=== PATIENT | male | born 1970 | race Caucasian/White ===

== ENCOUNTER 2016-02-15 22:02 | Emergency (ER) | payer BC ==
[2016-02-15] MEDS ORDERED: Aspirin Low Dose CHEW TAB* 81 MG PO ONE (22:04)
[2016-02-15 22:25] LABS: Hematocrit 44 % (42-52); Hemoglobin 14.9 g/dl (14.0-18.0); Mean Corpuscular HGB Conc 34 g/dl (31-36); Mean Corpuscular Hemoglobin 30 pg (27-31); Mean Corpuscular Volume 89 fL (80-94); Mean Platelet Volume 7 um3 (7.4-10.4); Red Blood Count 4.99 10^6/ul (4.0-5.4); Red Cell Distribution Width 13 % (10.5-15); White Blood Count 8.9 10^3/ul (3.5-10.8)
[2016-02-15 22:49] LABS: ALT 93 U/L (7-52); Albumin 4.4 g/dL (3.2-5.2); Alcohol < 10 mg/dL (<10); Alkaline Phosphatase 107 U/L (34-104); BUN/Creatinine Ratio 16.5 (8-20); Blood Urea Nitrogen 16 mg/dL (6-24); CO2 Carbon Dioxide 26 mmol/L (22-32); Calcium 9.1 mg/dL (8.6-10.3); Chloride 101 mmol/L (101-111); EGFR African American 106.7 (>60); Globulin 3.1 g/dL (2-4); Glucose 111 mg/dL (70-100); Sodium 135 mmol/L (133-145); Total Protein 7.5 g/dL (6.4-8.9)
[2016-02-15] MEDS ORDERED: Iohexol 350* (CONTRAST) 500 ML MDV IV ONE (22:58)
--- NOTE | 2016-02-15 23:14 | RAD ---
INDICATION: Chest pain COMPARISON: None TECHNIQUE: PA and lateral views of the chest were obtained. FINDINGS: The heart and mediastinum are normal in size and contour. The lungs are grossly clear. There is no evidence of large pleural effusion. Visualized bones are normal for the patient's age. There is no radiographic evidence of free air beneath the diaphragm IMPRESSION: No radiographic evidence of acute cardiopulmonary disease.
--- NOTE | 2016-02-16 00:09 | ED ---
dave Frost Timothy, scribed for Vijay Fitzpatrick MD on 02/15/16 at 2215 . Syncope/Near Syncope - HPI Summary HPI Summary: Victor M Rosas is a 45 yo male presenting to [facility] with syncope, CP, and SOB at 2130 today. He states he was laughing very hard and wound up losing consciousness. He was unconscious for a few seconds, with no post-ictal period. He remembers regaining consciousness, but not the loss of consciousness itself. He does not see a doctor for his SOB, which started months ago, but has noticed it has been getting worse recently. He recently had a surgery performed by Dr. Greene. His MHx includes sleep apnea. - History Of Current Complaint Chief Complaint: EDSyncope Time Seen by Provider: 02/15/16 22:04 Hx Obtained From: Patient Onset/Duration: Sudden Onset, Lasting Minutes Timing: Intermittent Episode Lasting - seconds Context: Witnessed Activity At Onset: At Rest Associated Head Trauma: No Aggravating Factor(s): Position Change Alleviating Factor(s): Spontaneous Resolution Associated Signs And Symptoms: Chest Pain, Shortness Of Breath - Allergies/Home Medications Allergies/Adverse Reactions: Allergies Allergy/AdvReac Type Severity Reaction Status Date / Time No Known Allergies Allergy Verified 01/24/16 06:36 PMH/Surg Hx/FS Hx/Imm Hx Respiratory History: Reports: Hx Sleep Apnea - DOES NOT USE CPAP Sensory History: Comment Only: Hx Contacts or Glasses - CONTACTS, WILL WEAR GLASSES DAY OF SURGERY Opthamlomology History: Comment Only: Hx Contacts or Glasses - CONTACTS, WILL WEAR GLASSES DAY OF SURGERY - Surgical History Hx Anesthesia Reactions: No - Family History Known Family History: Positive: Hypertension Negative: Cardiac Disease, Diabetes - Social History Occupation: Employed Full-time Alcohol Use: Rare Alcohol Amount: MAYBE 1 DRINK/YR Substance Use Type: Reports: None Smoking Status (MU): Never Smoked Tobacco Have You Smoked in the Last Year: No Review of Systems Constitutional: Negative Eyes: Negative ENT: Negative Positive: Chest Pain Positive: Shortness Of Breath Gastrointestinal: Negative Genitourinary: Negative Musculoskeletal: Negative Skin: Negative Positive: Syncope Psychological: Normal All Other Systems Reviewed And Are Negative: Yes Physical Exam Triage Information Reviewed: Yes Vital Signs On Initial Exam: Initial Vitals Temp Pulse Resp BP Pulse Ox 100.1 F 94 19 138/77 93 02/15/16 22:07 02/15/16 22:07 02/15/16 22:07 02/15/16 22:07 02/15/16 22:07 Vital Signs Reviewed: Yes Appearance: Positive: Well-Appearing, No Pain Distress Skin: Positive: Warm Head/Face: Positive: Normal Head/Face Inspection Eyes: Positive: [place] ENT: Positive: Hearing grossly normal Neck: Positive: Supple Respiratory/Lung Sounds: Positive: Clear to Auscultation, Breath Sounds Present Cardiovascular: Positive: RRR. Negative: Murmur Abdomen Description: Positive: Nontender, Soft Bowel Sounds: Positive: Present Musculoskeletal: Positive: Strength/ROM Intact Neurological: Positive: Sensory/Motor Intact, Alert, Oriented to Person Place, Time Psychiatric: Positive: Normal Diagnostics - Vital Signs Vital Signs Temp Pulse Resp BP Pulse Ox 02/15/16 22:07 100.1 F 94 19 138/77 93 - Laboratory Lab Results: Lab Results 02/15/16 02/15/16 02/15/16 Range/Units 22:05 22:05 22:05 WBC 8.9 (3.5-10.8) 10^3/ul RBC 4.99 (4.0-5.4) 10^6/ul Hgb 14.9 (14.0-18.0) g/dl Hct 44 (42-52) % MCV 89 (80-94) fL MCH 30 (27-31) pg MCHC 34 (31-36) g/dl RDW 13 (10.5-15) % Plt Count 307 (150-450) 10^3/ul MPV 7 L (7.4-10.4) um3 Neut % (Auto) 55.2 (38-83) % Lymph % (Auto) 30.0 (25-47) % [place] % (Auto) 8.2 (1-9) % Eos % (Auto) 5.7 (0-6) % Baso % (Auto) 0.9 (0-2) % Absolute Neuts (auto) 4.9 (1.5-7.7) 10^3/ul Absolute Lymphs (auto) 2.7 (1.0-4.8) 10^3/ul Absolute Monos (auto) 0.7 (0-0.8) 10^3/ul Absolute Eos (auto) 0.5 (0-0.6) 10^3/ul Absolute Basos (auto) 0.1 (0-0.2) 10^3/ul Absolute Nucleated RBC 0.01 10^3/ul Nucleated RBC % 0.1 D-Dimer, Quantitative 240 H (Less Than 230) ng/mL Sodium 135 (133-145) mmol/L Potassium TNP Chloride 101 (101-111) mmol/L Carbon Dioxide 26 (22-32) mmol/L Anion Gap TNP BUN 16 (6-24) mg/dL Creatinine 0.97 (0.67-1.17) mg/dL Est GFR ( Amer) 106.7 (>60) Est GFR (Non-Af Amer) 83.0 (>60) BUN/Creatinine Ratio 16.5 (8-20) Glucose 111 H (70-100) mg/dL Lactic Acid (0.5-2.0) mmol/L Calcium 9.1 (8.6-10.3) mg/dL Total Bilirubin 0.50 (0.2-1.0) mg/dL AST TNP ALT 93 H (7-52) U/L Alkaline Phosphatase 107 H (34-104) U/L Troponin I 0.00 (<0.04) ng/mL Total Protein 7.5 (6.4-8.9) g/dL Albumin 4.4 (3.2-5.2) g/dL Globulin 3.1 (2-4) g/dL Albumin/Globulin Ratio 1.4 (1-3) Serum Alcohol < 10 (<10) mg/dL 02/15/16 Range/Units 22:05 WBC (3.5-10.8) 10^3/ul RBC (4.0-5.4) 10^6/ul Hgb (14.0-18.0) g/dl Hct (42-52) % MCV (80-94) fL MCH (27-31) pg MCHC (31-36) g/dl RDW (10.5-15) % Plt Count (150-450) 10^3/ul MPV (7.4-10.4) um3 Neut % (Auto) (38-83) % Lymph % (Auto) (25-47) % [place] % (Auto) (1-9) % Eos % (Auto) (0-6) % Baso % (Auto) (0-2) % Absolute Neuts (auto) (1.5-7.7) 10^3/ul Absolute Lymphs (auto) (1.0-4.8) 10^3/ul Absolute Monos (auto) (0-0.8) 10^3/ul Absolute Eos (auto) (0-0.6) 10^3/ul Absolute Basos (auto) (0-0.2) 10^3/ul Absolute Nucleated RBC 10^3/ul Nucleated RBC % D-Dimer, Quantitative (Less Than 230) ng/mL Sodium (133-145) mmol/L Potassium Chloride (101-111) mmol/L Carbon Dioxide (22-32) mmol/L Anion Gap BUN (6-24) mg/dL Creatinine (0.67-1.17) mg/dL Est GFR ( Amer) (>60) Est GFR (Non-Af Amer) (>60) BUN/Creatinine Ratio (8-20) Glucose (70-100) mg/dL Lactic Acid 1.6 (0.5-2.0) mmol/L Calcium (8.6-10.3) mg/dL Total Bilirubin (0.2-1.0) mg/dL AST ALT (7-52) U/L Alkaline Phosphatase (34-104) U/L Troponin I (<0.04) ng/mL Total Protein (6.4-8.9) g/dL Albumin (3.2-5.2) g/dL Globulin (2-4) g/dL Albumin/Globulin Ratio (1-3) Serum Alcohol (<10) mg/dL Result Diagrams: 02/15/16 22:05 02/16/16 00:50 Lab Statement: Any lab studies that have been ordered have been reviewed, and results considered in the medical decision making process. - Radiology CXR Xray Interpretation: No Acute Changes - IMPRESSION: No radiographic evidence of acute cardiopulmonary disease. Radiology Interpretation Completed By: Radiologist - CT Chest/Thorax CT Interpretation: No Acute Changes - No pulmonary embolism identified. No other acute abnormality sen in the chest or visualized upper abdomen. CT Interpretation Completed By: Radiologist - imaging certified lactation educator - EKG 2210 Cardiac Rate: NL - @ 86 BPM EKG Interpretation: NSR @ 86 BPM Re-Evaluation - Re-Evaluation First Eval Re-Evaluation Time: 02:46 Change: Improved Comment: Pt will be discharged, he is agreeable Course/Dx Assessment/Plan: Victor M Rosas is a 45 yo male presenting to [facility] S/P a witnessed syncopal episode at 2130 today lasting a few seconds, accompanied by CP and SOB. After review of his EKG, labs, and CXR, he will be discharged with syncope with instructions to follow up with his PCP. He is agreeable to this plan. - Diagnoses Provider Diagnoses: Syncope and collapse Discharge - Discharge Plan Condition: Stable Disposition: HOME Patient Education Materials: Syncope (ED) Referrals: Non Staff,Doctor [Primary Care Provider] - Additional Instructions: Follow up with your primary care physician regarding your visit to the emergency department. Return to the emergency department with any recurring or worsening symptoms. The documentation as recorded by the dave walker Timothy accurately reflects the service I personally performed and the decisions made by me, Vijay Fitzpatrick MD.
[2016-02-16 02:20] LABS: Benzodiazepine Urine Screen None Detected (None Detect)
[2016-02-16 02:42] VITALS: BP 117/77
--- NOTE | 2016-02-16 07:59 | RAD ---
HISTORY: Surgery, shortness of breath COMPARISONS: None TECHNIQUE: Multiple contiguous axial CT scans of the chest were obtained after the administration of nonionic intravenous contrast, timed to the pulmonary arterial phase of contrast enhancement.. Coronal and sagittal multiplanar reformations are also submitted for review. FINDINGS: NECK AND THYROID: The lower neck and thyroid are unremarkable. CHEST WALL: There is no lower cervical, axillary, or supraclavicular lymphadenopathy by size criteria. HEART AND PERICARDIUM: The heart is unremarkable. AORTA AND PULMONARY VASCULATURE: There is no pulmonary arterial filling defect to suggest pulmonary embolism. There is no linear filling defect within the aorta to suggest aortic dissection. MEDIASTINUM: There is no mediastinal lymphadenopathy by size criteria. NAHEED: There is a subcentimeter short axis right hilar lymph node. AIRWAY AND ESOPHAGUS: The airway is unremarkable, without endobronchial filling defect. The esophagus is grossly normal. LUNG PARENCHYMA: The lungs are clear. PLEURA: No pleural abnormalities are noted. UPPER ABDOMEN: The upper abdomen is unremarkable. BONES AND SOFT TISSUES: Degenerative changes are noted OTHER: None. IMPRESSION: NO PULMONARY ARTERIAL FILLING DEFECT TO SUGGEST PULMONARY EMBOLUS.
== END 2016-02-16 02:49 | disposition home or self-care (01) ==
LOC: ED 22:02
DX: R55 Syncope and collapse (principal); R07.9 Chest pain, unspecified; R06.02 Shortness of breath
CPT/HCPCS: 36415; 71020; 71275; 80053; 80307; 80320; 83605; 84484; 85025; 85379; 93005; 99283; G0480; Q9967

== ENCOUNTER 2017-03-18 21:01 | Emergency (ER) | payer BC, OTHER ==
[2017-03-18] MEDS ORDERED: Ketorolac INJ* 30 MG/ML 1 ML VIAL IV PUSH ONE (21:37)
[2017-03-18] MEDS ORDERED: Diazepam SYRINGE* 5 MG/ML 2 ML SYRINGE (10 MG total) IV ONE (21:38)
[2017-03-18] MEDS ORDERED: Diazepam INJ (NF) 5 MG/ML 10 ML VIAL (50 MG TOTAL) IV ONE (22:30)
--- NOTE | 2017-03-19 00:09 | ED ---
Nathan Frost Abhishek, scribed for Aleshia Tong MD on 03/18/17 at 2145 . Complex/Multi-Sys Presentation - HPI Summary HPI Summary: This patient is a 46 year old M presenting [place] [facility] accompanied by and male doughnut icer with a chief complaint of lower back pain s/p fall since earlier today. The pt Fell on ice and pt reports that his back hit the running board of the ambulance. Pt reports neck pain and right shoulder pain. Medications reviewed and none were reported. Pt denies head injury, tingling in the fingers , prior lower back hx and urinary problems. The pt currently has a C-collar applied. The patient rates the pain 6/10 in severity. Symptoms aggravated by nothing. Symptoms alleviated by nothing. Pt also has had no hx of focal neurological weakness. - History Of Current Complaint Chief Complaint: EDBackInjuryPain Time Seen by Provider: 03/18/17 21:21 Hx Obtained From: Patient Onset/Duration: Sudden Onset, Lasting Hours - at 1115 on 03/18/17 Severity Currently: Moderate Severity Initially: Moderate Aggravating Factor(s): nothing Alleviating Factor(s): nothing Associated Signs And Symptoms: Positive: Back Pain - Lower back pain, Other - neck pain and right shoulder pain. Negative LOC, head injury, tingling in the fingers and urinary problems. - Allergies/Home Medications Allergies/Adverse Reactions: Allergies Allergy/AdvReac Type Severity Reaction Status Date / Time No Known Allergies Allergy Verified 03/18/17 21:09 PMH/Surg Hx/FS Hx/Imm Hx Endocrine/Hematology History: Denies: Hx Diabetes Cardiovascular History: Reports: Hx Hypertension Respiratory History: Reports: Hx Sleep Apnea - DOES NOT USE CPAP History: Denies: Hx Renal Disease Sensory History: Comment Only: Hx Contacts or Glasses - CONTACTS, WILL WEAR GLASSES DAY OF SURGERY Opthamlomology History: Comment Only: Hx Contacts or Glasses - CONTACTS, WILL WEAR GLASSES DAY OF SURGERY - Surgical History Hx Anesthesia Reactions: No - Immunization History Date of Influenza Vaccine: 02/2017 Immunizations Up to Date: Yes Infectious Disease History: No Infectious Disease History: Denies: Traveled Outside the [place] in Last 30 Days - Family History Known Family History: Positive: Hypertension Negative: Cardiac Disease, Diabetes - Social History Lives: With Family Alcohol Use: Rare Alcohol Amount: MAYBE 1 DRINK/YR Substance Use Type: Reports: None Smoking Status (MU): Never Smoked Tobacco Have You Smoked in the Last Year: No Review of Systems Constitutional: Negative Eyes: Negative ENT: Negative Cardiovascular: Negative Respiratory: Negative Gastrointestinal: Negative Positive: no symptoms reported Musculoskeletal: Other - lower back pain, neck pain and right shoulder pain Skin: Negative Neurological: Other - Negative LOC Psychological: Normal All Other Systems Reviewed And Are Negative: Yes Physical Exam - Summary Physical Exam Summary: VITAL SIGNS: Reviewed. GENERAL: ~Patient is a well-developed and nourished (MALE) who is lying comfortable in the stretcher. Patient is not in any acute respiratory distress. HEAD AND FACE: No signs of trauma. No ecchymosis, hematomas or skull depressions. No sinus tenderness. EYES: PERRLA, EOMI x 2, No injected conjunctiva, no nystagmus. EARS: Hearing grossly intact. Ear canals and tympanic membranes are within normal limits. MOUTH: Oropharynx within normal limits. NECK: Supple, trachea is midline, no adenopathy, no JVD, no carotid bruit. C spine collar applied. CHEST: Symmetric, no tenderness at palpation LUNGS: Clear to auscultation bilaterally. No wheezing or crackles. CVS: Regular rate and rhythm, S1 and S2 present, no murmurs or gallops appreciated. ABDOMEN: Soft, non-tender. No signs of distention. No rebound no guarding, and no masses palpated. Bowel sounds are normal. EXTREMITIES: FROM in all major joints, no edema, no cyanosis or clubbing. NEURO: Alert and oriented x 3. No acute neurological deficits. Speech is normal and follows commands. Bilateral straight left test positive (Right le degrees and left le degrees) SKIN: Dry and warm Back: Tenderness of lumbar spine. Triage Information Reviewed: Yes Vital Signs On Initial Exam: Initial Vitals Temp Pulse Resp BP Pulse Ox 98.5 F 83 18 136/90 97 03/18/17 21:06 03/18/17 21:06 03/18/17 21:06 03/18/17 21:06 03/18/17 21:06 Vital Signs Reviewed: Yes Diagnostics - Vital Signs Vital Signs Temp Pulse Resp BP Pulse Ox 03/18/17 21:06 98.5 F 83 18 136/90 97 - Laboratory Lab Statement: Any lab studies that have been ordered have been reviewed, and results considered in the medical decision making process. - CT CT Lumbar Spine CT Interpretation Completed By: Radiologist - CT Lumbar Spine reveals negative for lumbar spinal fracture of malalignment ED physician has reviewed this radiology report and agrees. CT Thoracic spine CT Interpretation Completed By: Radiologist - CT Thoracic Spine reveals negative for thoracic spinal fracture por malalighment Mild degenerative changes. Incidental note is made of calcified coronary artery plaques. ED physician has reviewed this radiology report and agrees. CT Cervical Spine CT Interpretation Completed By: Radiologist - CT Cervical Spine reveals negative for fracture or malalignment Mild degenerative changes. ED physician has reviewed this radiology report and agrees. Complex Multi-Symp Course/Dx Course Of Treatment: the pt is a 46 M with a CC of lower back pain s/p fall. The mechanism of the fall was described as fall on ice in which the pt "hit the running board of the ambulance." Pt also reports the right shoulder pain and neck pain. The pt had the following imaging exams taken: CT Lumbar spine, CT Cervical spine and CT Thoracic spine. We discussed the cervical spine CT findings (Coronary artery plaques) and the pt denied chest pain and angine. We recommened to follow up with PCP within 2 to 3 days to discuss the CT findings. The dx will be contusion and the pt will be discharged to home. - Diagnoses Provider Diagnoses: Contusion Discharge - Discharge Plan Condition: Stable Disposition: HOME Patient Education Materials: Contusion in Adults (ED) Referrals: Willi Chi MD [Primary Care Provider] - (Follow up with PCP within 2 to [address] Cervical spine findings (Coronary Artery Plaques).) Additional Instructions: RETURN TO THE EMERGENCY DEPARTMENT FOR CHANGING OR WORSENING SYMPTOMS. The documentation as recorded by the Nathan walker Abhishek accurately reflects the service I personally performed and the decisions made by , Aleshia Tong MD.
[2017-03-19 00:25] VITALS: BP 120/82
--- NOTE | 2017-03-19 07:51 | RAD ---
HISTORY: Fall, back pain COMPARISONS: CT of the chest dated February 15, 2016 TECHNIQUE: Multiple contiguous axial CT scans were obtained of the thoracic spine without intravenous contrast, with coronal and sagittal multiplanar reformations. FINDINGS: SPINAL CANAL: Evaluation of the central canal is limited on CT technique; however, there is no obvious canalicular mass or epidural hemorrhage. ALIGNMENT: The alignment is normal. VERTEBRAL BODIES: There is mild anterior wedging of the midthoracic spine stable from February 25, 2016. There is no acute displaced fracture. JOINTS: There is mild osteoarthritis of the costovertebral articulations. MUSCULATURE: Normal INTERVERTEBRAL DISCS: There is diffuse loss of intervertebral disc height throughout the spine. AXIAL IMAGES: There is no osseous central canal stenosis or neuroforaminal narrowing. SOFT TISSUES: Coronary calcifications are noted. OTHER: None IMPRESSION: MILD DEGENERATIVE DISC DISEASE AND OSTEOARTHRITIS.
--- NOTE | 2017-03-19 07:53 | RAD ---
HISTORY: Fall, back pain COMPARISONS: None TECHNIQUE: Multiple contiguous axial CT scans were obtained of the lumbar spine without intravenous contrast, with coronal and sagittal multiplanar reformations. FINDINGS: SPINAL CANAL: Evaluation of the central canal is limited on CT technique; however, there is no obvious canalicular mass or epidural hemorrhage. ALIGNMENT: The alignment is normal. VERTEBRAL BODIES: The vertebral bodies are preserved in height. The bones are normal in attenuation. There is mild anterolateral marginal osteophyte formation. JOINTS: There is mild facet hypertrophic change. MUSCULATURE: Normal INTERVERTEBRAL DISCS: There is diffuse loss of intervertebral disc height throughout the spine. AXIAL IMAGES: T12-L1: There is no osseous neural foraminal narrowing or central canal stenosis. L1-L2: There is no osseous neural foraminal narrowing or central canal stenosis. L2-L3: There is no osseous neural foraminal narrowing or central canal stenosis. L3-L4: There is no osseous neural foraminal narrowing or central canal stenosis. L4-L5: There is a broad-based disc bulge. There is marginal osteophyte formation at the neuroforamina bilaterally. There is moderate bilateral neural foraminal narrowing. There is no osseous central canal stenosis. L5-S1: There is mild broad-based disc bulge. There is no osseous neural foraminal narrowing or central canal stenosis. SOFT TISSUES: The visualized soft tissues of the abdomen are unremarkable. OTHER: None IMPRESSION: MILD DEGENERATIVE DISC DISEASE AND OSTEOARTHRITIS. THERE IS NEURAL FORAMINAL NARROWING AT L4-L5. THERE IS NO OSSEOUS CENTRAL CANAL STENOSIS.
--- NOTE | 2017-03-19 07:56 | RAD ---
INDICATION: Trauma, neck pain. COMPARISON: There are no prior studies available for comparison. TECHNIQUE: Contiguous axial sections were obtained from the skull base through the T3 vertebra. Images were reconstructed in the sagittal and coronal planes. FINDINGS: There is straightening of the cervical spine with loss of the normal cervical lordosis. No prevertebral soft tissue swelling or fracture is seen. At the C3-C4 level there is posterior uncinate process spurring associated with a small to moderate size left posterior lateral disc protrusion. There is mild neural foraminal narrowing on the right side and moderate neural foraminal narrowing on the left side. At the C4-C5 level there is mild posterior uncinate process spurring which causes mild spinal canal narrowing. There is moderate bilateral neural foraminal narrowing. At the C5-C6 level there is mild posterior uncinate process spurring which causes mild spinal canal narrowing. There is mild to moderate bilateral neural foraminal narrowing. At C6-C7 level there is no evidence for spinal canal or neural foraminal narrowing. IMPRESSION: 1. STRAIGHTENING OF THE CERVICAL SPINE, NO EVIDENCE FOR FRACTURE OR SUBLUXATION. 2. MODERATE CERVICAL SPONDYLOSIS.
== END 2017-03-19 00:24 | disposition home or self-care (01) ==
LOC: ED 21:01
DX: S30.0XXA Contusion of lower back and pelvis, initial encounter (principal); W18.09XA Striking against other object with subsequent fall, initial encounter; Y93.89 Activity, other specified; Y92.9 Unspecified place or not applicable; M54.2 Cervicalgia; M25.511 Pain in right shoulder; M47.812 Spondylosis without myelopathy or radiculopathy, cervical region; M51.36 Other intervertebral disc degeneration, lumbar region; M47.816 Spondylosis without myelopathy or radiculopathy, lumbar region; M51.34 Other intervertebral disc degeneration, thoracic region; M47.814 Spondylosis without myelopathy or radiculopathy, thoracic region; I10 Essential (primary) hypertension; G47.30 Sleep apnea, unspecified
CPT/HCPCS: 72125; 72128; 72131; 96374; 96375; 99282; J1885; J3360

== ENCOUNTER 2017-04-26 12:46 | Observation (INO) | payer BC, OTHER ==
--- NOTE | 2017-04-26 14:28 | RAD ---
HISTORY: Chest pain COMPARISONS: February 15, 2016 VIEWS: 1: frontal portable view of the chest at 2:15 PM. The right costophrenic angle is partially cut off. FINDINGS: LINES AND TUBES: None. CARDIOMEDIASTINAL SILHOUETTE: The cardiomediastinal silhouette is normal for portable technique. PLEURA: The right costophrenic angle is partially cut off. The left costophrenic angle is sharp. LUNG PARENCHYMA: The lungs are clear. ABDOMEN: The upper abdomen is clear. There is no subphrenic gas. BONES AND SOFT TISSUES: No bone or soft tissue abnormalities are noted. IMPRESSION: LIMITED STUDY. NO ACTIVE CARDIOPULMONARY DISEASE.
[2017-04-26 14:44] LABS: ABS Basophils 0 10^3/ul (0-0.2); ABS Eosinophils 0.2 10^3/ul (0-0.6); ABS Lymphocytes 1.8 10^3/ul (1.0-4.8); ABS Monocytes 0.6 10^3/ul (0-0.8); ABS Neutrophils 4.9 10^3/ul (1.5-7.7); ABS Nucleated RBC 0 10^3/ul; Eosinophil % 2.5 % (0-6); Hematocrit 40 % (42-52); Hemoglobin 13.6 g/dl (14.0-18.0); Lymphocyte % 23.7 % (25-47); Mean Corpuscular HGB Conc 34 g/dl (31-36); Mean Corpuscular Hemoglobin 30 pg (27-31); Mean Corpuscular Volume 89 fL (80-94); Mean Platelet Volume 6.4 um3 (7.4-10.4); Nucleated Red Blood Cells % 0; Platelet Count 309 10^3/ul (150-450); Red Blood Count 4.54 10^6/ul (4.0-5.4); Red Cell Distribution Width 13 % (10.5-15); White Blood Count 7.5 10^3/ul (3.5-10.8)
[2017-04-26 14:52] LABS: INR 0.95 (0.77-1.02)
[2017-04-26 15:08] LABS: EGFR Non-African American 104.7 (>60)
[2017-04-26] MEDS ORDERED: Nitroglycerin TAB 0.4 MG* 0.4 MG TAB ONE (15:27)
[2017-04-26] MEDS ORDERED: Morphine INJ* 2 MG/ML 1 ML CARPUJECT IV PRN (16:28)
[2017-04-26] MEDS ORDERED: Acetaminophen TAB* 325 MG PO PRN (16:28)
[2017-04-26] MEDS ORDERED: Al Hydrox/Mg Hydrox/Simet LIQ* 30 ML UDC PO PRN (16:31)
--- NOTE | 2017-04-26 17:54 | ED ---
Ken Frost Thomas, scribed for Josiah Khalil MD on 04/26/17 at 1328 . HPI Chest Pain - HPI Summary HPI Summary: The patient is a 46 year old male complaining of chest pain in the center of his chest. The pain woke up at 05:00 and the chest pain began at 6:00, and it lasted for 30 minutes. The pain is described as dull and burning. 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 He was not exerting himself when the pain began. The pain began again at 10:30. He was given ASA 324 and NTG x2 en route to [facility]. He did have some palpitations before arrival to [facility]. He felt lightheaded when standing. Past medical history includes CAD. He is being seen by a maintenance custodian. - History of Current Complaint Chief Complaint: EDChestPainROMI Time Seen by Provider: 04/26/17 13:01 Hx Obtained From: Patient Onset/Duration: Still Present Time of Onset: 06:00 Timing: Intermittent, Lasting Minutes - 30 Current Severity: Moderate Pain Intensity: 3 Pain Scale Used: 0-10 Numeric Chest Pain Location: Discrete at: - center of chest Character: Burning, Dull/Aching Alleviating Factor(s): Nothing Associated Signs and Symptoms: Positive: Chest Pain, Other: - Lightheadedness, palpitations - Allergy/Home Medications Allergies/Adverse Reactions: Allergies Allergy/AdvReac Type Severity Reaction Status Date / Time No Known Allergies Allergy Verified 03/18/17 21:09 Home Medications: Home Medications Multivitamins/Minerals TAB* [Theragran/minerals TAB*] 1 tab PO DAILY 04/26/17 [ History Confirmed 04/26/17] PMH/Surg Hx/FS Hx/Imm Hx Endocrine/Hematology History: Denies: Hx Diabetes Cardiovascular History: Reports: Hx Coronary Artery Disease Denies: Hx Hypertension Respiratory History: Reports: Hx Sleep Apnea - DOES NOT USE CPAP History: Denies: Hx Renal Disease Sensory History: Comment Only: Hx Contacts or Glasses - CONTACTS, WILL WEAR GLASSES DAY OF SURGERY Opthamlomology History: Comment Only: Hx Contacts or Glasses - CONTACTS, WILL WEAR GLASSES DAY OF SURGERY - Surgical History Hx Anesthesia Reactions: No - Immunization History Date of Influenza Vaccine: 02/2017 Infectious Disease History: No Infectious Disease History: Denies: Traveled Outside the [place] in Last 30 Days - Family History Known Family History: Positive: Hypertension Negative: Cardiac Disease, Diabetes - Social History Alcohol Use: Rare Alcohol Amount: MAYBE 1 DRINK/YR Substance Use Type: Reports: None Smoking Status (MU): Never Smoked Tobacco Have You Smoked in the Last Year: No Review of Systems Positive: Other - Lightheaded when standing. Negative: Fever Positive: Palpitations, Chest Pain All Other Systems Reviewed And Are Negative: Yes Physical Exam - Summary Physical Exam Summary: Appearance: The patient is well-nourished in no acute distress and in no acute pain. Skin: The skin is warm and dry and skin color reflects adequate perfusion. HEENT: The head is normocephalic and atraumatic. The pupils are equal and reactive. The conjunctivae are clear and without drainage. Nares are patent and without drainage. Mouth reveals moist mucous membranes and the throat is without erythema and exudate. The external ears are intact. The ear canals are patent and without drainage. The tympanic membranes are intact. Neck: the neck is supple with full range of motion and non-tender. There are no carotid bruits. There is no neck vein distension. Respiratory: Chest is non-tender. Lungs are clear to auscultation and breath sounds are symmetrical and equal. Cardiovascular: Heart is regular rate and rhythm. There is no murmur or rub auscultated. There is no peripheral edema and pulses are symmetrical and equal. Abdomen: The abdomen is soft and non-tender. There are normal bowel sounds heard in all four quadrants and there is no organomegaly palpated. Musculoskeletal: There is no back tenderness noted. Extremities are non-tender with full range of motion. There is good capillary refill. There is no peripheral edema or calf tenderness elicited. Neurological: Patient is alert and oriented to person, place and time. The patient has symmetrical motor strength in all four extremities. Cranial nerves are grossly intact. Deep tendon reflexes are symmetrical and equal in all four extremities. Psychiatric: The patient has an appropriate affect and does not exhibit any anxiety or depression. Triage Information Reviewed: Yes Vital Signs On Initial Exam: Initial Vitals Temp Pulse Resp BP Pulse Ox 98.3 F 77 16 119/53 94 04/26/17 12:56 04/26/17 12:56 04/26/17 12:56 04/26/17 12:56 04/26/17 12:56 Vital Signs Reviewed: Yes Diagnostics - Vital Signs Vital Signs Temp Pulse Resp BP Pulse Ox 04/26/17 12:56 98.3 F 77 16 119/53 94 - Laboratory Lab Results: Lab Results 04/26/17 04/26/17 04/26/17 Range/Units 14:35 14:35 14:35 WBC 7.5 (3.5-10.8) 10^3/ul RBC 4.54 (4.0-5.4) 10^6/ul Hgb 13.6 L (14.0-18.0) g/dl Hct 40 L (42-52) % MCV 89 (80-94) fL MCH 30 (27-31) pg MCHC 34 (31-36) g/dl RDW 13 (10.5-15) % Plt Count 309 (150-450) 10^3/ul MPV 6.4 L (7.4-10.4) um3 Neut % (Auto) 65.6 (38-83) % Lymph % (Auto) 23.7 L (25-47) % [place] % (Auto) 7.6 H (0-7) % Eos % (Auto) 2.5 (0-6) % Baso % (Auto) 0.6 (0-2) % Absolute Neuts (auto) 4.9 (1.5-7.7) 10^3/ul Absolute Lymphs (auto) 1.8 (1.0-4.8) 10^3/ul Absolute Monos (auto) 0.6 (0-0.8) 10^3/ul Absolute Eos (auto) 0.2 (0-0.6) 10^3/ul Absolute Basos (auto) 0 (0-0.2) 10^3/ul Absolute Nucleated RBC 0 10^3/ul Nucleated RBC % 0 INR (Anticoag Therapy) (0.77-1.02) D-Dimer, Quantitative (Less Than 230) ng/mL Sodium 137 (133-145) mmol/L Potassium 3.6 (3.5-5.0) mmol/L Chloride 104 (101-111) mmol/L Carbon Dioxide 27 (22-32) mmol/L Anion Gap 6 (2-11) mmol/L BUN 19 (6-24) mg/dL Creatinine 0.79 (0.67-1.17) mg/dL Est GFR ( Amer) 134.6 (>60) Est GFR (Non-Af Amer) 104.7 (>60) BUN/Creatinine Ratio 24.1 H (8-20) Glucose 96 (70-100) mg/dL Lactic Acid (0.5-2.0) mmol/L Calcium 9.2 (8.6-10.3) mg/dL Total Bilirubin 0.40 (0.2-1.0) mg/dL AST 22 (13-39) U/L ALT 23 (7-52) U/L Alkaline Phosphatase 101 (34-104) U/L Troponin I 0.00 (<0.04) ng/mL B-Natriuretic Peptide 19 ( - 100) pg/mL Total Protein 7.1 (6.4-8.9) g/dL Albumin 4.1 (3.2-5.2) g/dL Globulin 3.0 (2-4) g/dL Albumin/Globulin Ratio 1.4 (1-3) TSH 0.81 (0.34-5.60) mcIU/mL 04/26/17 04/26/17 04/26/17 Range/Units 14:35 14:35 16:24 WBC (3.5-10.8) 10^3/ul RBC (4.0-5.4) 10^6/ul Hgb (14.0-18.0) g/dl Hct (42-52) % MCV (80-94) fL MCH (27-31) pg MCHC (31-36) g/dl RDW (10.5-15) % Plt Count (150-450) 10^3/ul MPV (7.4-10.4) um3 Neut % (Auto) (38-83) % Lymph % (Auto) (25-47) % [place] % (Auto) (0-7) % Eos % (Auto) (0-6) % Baso % (Auto) (0-2) % Absolute Neuts (auto) (1.5-7.7) 10^3/ul Absolute Lymphs (auto) (1.0-4.8) 10^3/ul Absolute Monos (auto) (0-0.8) 10^3/ul Absolute Eos (auto) (0-0.6) 10^3/ul Absolute Basos (auto) (0-0.2) 10^3/ul Absolute Nucleated RBC 10^3/ul Nucleated RBC % INR (Anticoag Therapy) 0.95 (0.77-1.02) D-Dimer, Quantitative < 200 (Less Than 230) ng/mL Sodium (133-145) mmol/L Potassium (3.5-5.0) mmol/L Chloride (101-111) mmol/L Carbon Dioxide (22-32) mmol/L Anion Gap (2-11) mmol/L BUN (6-24) mg/dL Creatinine (0.67-1.17) mg/dL Est GFR ( Amer) (>60) Est GFR (Non-Af Amer) (>60) BUN/Creatinine Ratio (8-20) Glucose (70-100) mg/dL Lactic Acid 0.6 (0.5-2.0) mmol/L Calcium (8.6-10.3) mg/dL Total Bilirubin (0.2-1.0) mg/dL AST (13-39) U/L ALT (7-52) U/L Alkaline Phosphatase (34-104) U/L Troponin I 0.00 (<0.04) ng/mL B-Natriuretic Peptide ( - 100) pg/mL Total Protein (6.4-8.9) g/dL Albumin (3.2-5.2) g/dL Globulin (2-4) g/dL Albumin/Globulin Ratio (1-3) TSH (0.34-5.60) mcIU/mL Result Diagrams: 04/26/17 14:35 04/26/17 14:35 Lab Statement: Any lab studies that have been ordered have been reviewed, and results considered in the medical decision making process. - Radiology CXR Xray Interpretation: No Acute Changes - LIMITED STUDY. NO ACTIVE CARDIOPULMONARY DISEASE. Dr. Khalil has reviewed this report. Radiology Interpretation Completed By: Radiologist - EKG 13:04 Cardiac Rate: NL EKG Rhythm: Sinus Rhythm - at 71 BPM EKG Interpretation: Nondiagnostic Q waves in inferior leads. 15:36 Cardiac Rate: NL EKG Rhythm: Sinus Rhythm - at 72 BPM EKG Interpretation: Nondiagnostic Q waves in inferior leads. Re-Evaluation - Re-Evaluation First Eval Re-Evaluation Time: 15:54 Comment: Patient will be admitted. Chest Pain Course/Dx - Course Course Of Treatment: Mr. Rosas presented pain-free but with a worrisome story for CP that resolved with NTG. His initial ECG and labs were WNL but he began to have a return of his CP therefore, the hospitalist service was contacted for admission. - Diagnoses Provider Diagnoses: Chest pain Discharge - Sign-Out/Discharge Documenting (check all that apply): Discharge - Discharge Plan Condition: Stable Disposition: ADMITTED TO [facility] - Billing Disposition and Condition Condition: STABLE Disposition: HOSP-[facility] The documentation as recorded by the Ken walker Thomas accurately reflects the service I personally performed and the decisions made by me, Josiah Khalil MD.
--- NOTE | 2017-04-26 21:35 | HP ---
CC: Dr. Garcia; Dr. Manley * HISTORY AND PHYSICAL: DATE OF ADMISSION: 04/26/17 PRIMARY CARE PROVIDER: Dr. Garcia. TUBER MACHINE OPERATOR: Dr. Manley. CHIEF COMPLAINT: Chest pain. HISTORY OF PRESENT ILLNESS: Victor M Rosas is a 46-year-old male with history of obstructive sleep apnea for which he uses CPAP occasionally for which he was evaluated by Dr. Manley on 04/09/17 for intermittent chest pains and coronary calcifications noted incidentally on a trauma CAT scan of the chest after the patient fell earlier this year. Dr. Manley recommended for the patient to have an event monitor and cardiac stress test. The cardiac stress test was scheduled on 05/07/17. The patient presents today complaining of chest pain. He stated that his chest pain is similar to what he had been happening for the past 6 months. It 4/10 in intensity, nonradiating, little bit worse when he takes a deep breath. The chest pain occurred not with exercise, but when he was sitting on a tractor. It lasted approximately half an hour, then it recurred and lasted another hour. He stated that usually his pains would not last that long. The usual duration of his chest pains are usually 15 minutes. Usually, they have been occurring with a frequency of approximately twice a week and had been ongoing for the past 6 months. The patient denies any problems with exercise tolerance and he does not remember chest pain that occurred with exercise. So far, his ER workup is unremarkable. He is going to be placed on observation with cardiac stress test planned in the morning. PAST MEDICAL HISTORY: Obstructive sleep apnea, on CPAP. Last time the patient used his CPAP was a week ago. MEDICATIONS: Multivitamin daily and CPAP nightly, but the patient had been noncompliant with that. ALLERGIES: No known drug allergies. FAMILY HISTORY: Positive for mother with hypertension, father healthy. SOCIAL HISTORY: The patient never . 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 He denies any tobacco, alcohol or drug use. His surrogate is his mother. REVIEW OF SYSTEMS: Please see history of present illness. All the remaining 12 systems were reviewed with the patient and they were otherwise negative. PHYSICAL EXAMINATION GENERAL: The patient is a pleasant 46-year-old male with a BMI of 29. The patient is in no acute distress. Alert, awake and oriented x3. VITAL SIGNS: Blood pressure of 102/74, heart rate 72 and regular, respiratory rate 18, oxygen saturation 100% on 2 L of oxygen nasal cannula, and temperature of 98.3 HEENT: Head: Atraumatic, normocephalic. Eyes: Pupils equal, round, and reactive to light and accommodation. Oropharynx clear. Mucosa moist. NECK: Supple. No JVD. No bruits bilaterally. RESPIRATORY: Clear to auscultation bilaterally. CARDIOVASCULAR: Regular rate and rhythm. No murmur. ABDOMEN: Soft, nontender. Bowel sounds are present in all 4 quadrants. EXTREMITIES: There is no edema, pulses are +2 bilaterally. No clubbing or cyanosis. NEUROLOGIC: Speech is clear. Cranial nerves II through XII grossly intact. Motor strength is 5/5 bilaterally. LABORATORY DATA AND STUDIES: White blood cell count of 7.5, hemoglobin of 13.6 , hematocrit of 40 and platelets of 309. D-dimer was below 200. Sodium of 137 , potassium 3.6, chloride 104, carbon dioxide 27, BUN 19, creatinine 0.79. Liver function test unremarkable. Troponin of 0. TSH of 0.81. The patient's EKG showed normal sinus rhythm with a heart rate of 72 beats per minute with slow inferior Q waves in leads II and III and aVF. No other abnormalities. Comparing with an EKG from February 2016, the EKG was grossly unchanged. Portable chest x-ray. Impression: "Limited study. No active cardiopulmonary disease." ASSESSMENT AND PLAN: 1. A 46-year-old male with no significant past medical history, but noted coronary calcification on CT of the chest within the past month who presents with chest pain for the past 6 months. His chest pain today were of longer duration than before. It does not appear that they are caused by exercise and there is some pleuritic component to it, but no other aggravating or alleviating factors. The patient is going to be placed on overnight observation , planned for a treadmill stress test in the morning. He is going to be placed on aspirin on a daily basis and fasting lipid profile is going to be obtained in the morning. 2. In regards to the patient's obstructive sleep apnea, CPAP is going to be provided at night. 3. For DVT prophylaxis, the patient is low risk and he is going to be encouraged with ambulation. 4. The patient's code status is full and his surrogate is his mother. TIME SPENT: Approximately 65 minutes were spent on admission of this patient, more than half that time was spent [id number] with the patient during the interview and physical exam. [id number]/[facility] #: [id number] NATHALIE
[2017-04-27] MEDS ORDERED: Aspirin TAB* 325 MG PO SCH (09:00)
[2017-04-27] MEDS ORDERED: Multivitamins/Minerals TAB PO SCH (09:00)
--- NOTE | 2017-04-27 15:08 | RAD ---
Edited for charges. INDICATION: Chest pain, shortness of breath. COMPARISON: No relevant prior exams available on the [facility] PACS for comparison. TECHNIQUE: 10.500 mCi of Tc-99m Myoview were administered IV. SPECT images of the heart were obtained. Later on the same day. Under the direction of Dr. Nobles, an exercise stress test was performed. The patient achieved a peak heart rate of 150 bpm, 87 % of the age- predicted maximum. Subsequently, the patient was given an IV injection of 26.130 mCi Tc- 99m Myoview. SPECT images of the heart were obtained and a gated wall motion study was performed. FINDINGS: Gated wall motion images were obtained at stress and demonstrate hypokinesia at the anterior aspect of the septum. The calculated left ventricular ejection fraction is 55 % at stress. Estimated LEFT ventricular end diastolic volume is 100 mL. TID 0.89. Mild fixed thinning of the cardiac apex noted of doubtful clinical significance. No stress-induced reversible perfusion defect to indicate ischemia. IMPRESSION: 1. No compelling evidence for stress induced myocardial ischemia or presence of an infarct. 2. Hypokinesia at the anterior aspect of the septum. LEFT ventricular ejection fraction remains within normal limits. Negative for elevated end-diastolic volume. ASSESSMENT: Low risk based on nuclear portion. Based on imaging criteria from ACC/AHA 2002 Guideline Update for the Management of Patients With Chronic Stable Angina Table 23. Noninvasive Risk Stratification. MTDD
[2017-04-27 15:24] VITALS: BP 106/55
--- NOTE | 2017-04-28 03:33 | DS ---
CC: Dr. Chi; Dr. Joseph Manley * DISCHARGE SUMMARY: DATE OF ADMISSION: 04/26/17 DATE OF DISCHARGE: 04/27/17 PRIMARY CARE PROVIDER: Dr. Chi. DISCHARGE DIAGNOSIS: Chest pain with low probability cardiac stress test documented on the day of discharge. MEDICATIONS AT DISCHARGE: Multivitamin daily. LABORATORY DATA AND STUDIES PERFORMED DURING THE HOSPITAL STAY: Included: The patient's lipid profile showed triglycerides of 97, cholesterol total of 185, LDL of 133, and HDL of 32.3. TSH was 0.8. Troponins were 0 throughout his hospital stay. The patient's nuclear medicine cardiac stress test documented on 04/27/17 showed low risk. There was no compelling evidence of stress-induced myocardial ischemia or presence of an infarct. Hypokinesia of the anterior aspect of the septum. Left ventricular ejection fraction remains within normal limits. Negative for elevated end diastolic volume." Please note that his EF was 55% at stress. HOSPITALIZATION COURSE: Victor M Rosas is a 46-year-old male beltran with history of chest pain off and on for the past 6 months. He was evaluated by Dr. Manley and scheduled for stress echocardiogram on 05/07/17, but he came in to the hospital with prolonged chest pain that was not induced by exercise on the day of admission. For further details, please see history and physical dictated at admission. Shortly, the patient was observed on commissioner of internal revenue bed where he was continued to be in normal sinus rhythm. His troponins continued to be negative. His treadmill cardiac stress test showed a small area of hypokinesia as mentioned above, but his EF was within normal limits and there were no reversible defects. The patient was advised to follow up with his primary care provider and follow up with Dr. Manley in approximately 2 weeks. PHYSICAL EXAMINATION AT THE TIME OF DISCHARGE: Unchanged from admission. [id number]/[facility] #: [id number] MTDD
== END 2017-04-27 17:00 | disposition home or self-care (01) ==
LOC: ED 12:46 → MEDTELE 16:28
PROVIDERS: ADMIT Internal Medicine; ATTEND Internal Medicine
DX: R07.9 Chest pain, unspecified (principal); R00.2 Palpitations; I25.10 Atherosclerotic heart disease of native coronary artery without angina pectoris
CPT/HCPCS: 36415; 71045; 78452; 80053; 80061; 83605; 83880; 84443; 84484; 85025; 85379; 85610; 93005; 93017; 99284; A9270-GY; A9502; G0378

== ENCOUNTER 2018-08-04 16:35 | Emergency (ER) | payer BC ==
[2018-08-04 16:49] VITALS: BP 120/90
--- NOTE | 2018-08-04 17:15 | ED ---
Headache - HPI Summary HPI Summary: 48 yr old with frontal headache for a day and dizziness and feeling off balance since last evening. No focal weakness. No change in vision speech, hearing. He states he had a mild sore throat yesterday prior to this, and that he developed a feeling of things moving. he states he is having a hard time walking and is off balance. He states he has not had this condition before. He denies coughing. he denies colored nasal drainage. - History Of Current Complaint Chief Complaint: UCGeneralIllness Stated Complaint: SINUS,HEADACHE,DIZZINESS Time Seen by Provider: 08/04/18 16:44 - Allergies/Home Medications Allergies/Adverse Reactions: Allergies Allergy/AdvReac Type Severity Reaction Status Date / Time No Known Allergies Allergy Verified 08/04/18 16:49 PMH/Surg Hx/FS Hx/Imm Hx Endocrine/Hematology History: Denies: Hx Diabetes Cardiovascular History: Reports: Hx Angina, Hx Coronary Artery Disease, Other Cardiovascular Problems/Disorders - event monitor Denies: Hx Hypercholesterolemia, Hx Hypertension, Hx Myocardial Infarction, Hx Valvular Heart Disease Respiratory History: Reports: Hx Sleep Apnea History: Denies: Hx Renal Disease Sensory History: Reports: Hx Contacts or Glasses - contacts Denies: Hx Hearing Aid Opthamlomology History: Reports: Hx Contacts or Glasses - contacts - Surgical History Hx Anesthesia Reactions: No - Immunization History Date of Influenza Vaccine: 02/2017 Infectious Disease History: No Infectious Disease History: Denies: Traveled Outside the [place] in Last 30 Days - Family History Known Family History: Positive: Hypertension Negative: Cardiac Disease, Diabetes - Social History Alcohol Use: None Alcohol Amount: MAYBE 1 DRINK/YR Substance Use Type: Reports: None Smoking Status (MU): Never Smoked Tobacco Have You Smoked in the Last Year: No Review of Systems Constitutional: Negative Positive: Sore Throat Neurological: Other - off balance Positive: Headache All Other Systems Reviewed And Are Negative: Yes Physical Exam Triage Information Reviewed: Yes Vital Signs On Initial Exam: Initial Vitals Temp Pulse Resp BP Pulse Ox 99.0 F 87 16 120/90 98 08/04/18 16:45 08/04/18 16:45 08/04/18 16:45 08/04/18 16:45 08/04/18 16:45 Vital Signs Reviewed: Yes Appearance: Positive: Well-Appearing, No Pain Distress Skin: Positive: Warm, Skin Color Reflects Adequate Perfusion Head/Face: Positive: Normal Head/Face Inspection Eyes: Positive: EOMI, GISSELLE ENT: Positive: Pharynx normal, TMs normal. Negative: Nasal congestion, Nasal drainage, Sinus tenderness Neck: Positive: Nontender Respiratory/Lung Sounds: Positive: Clear to Auscultation, Breath Sounds Present Cardiovascular: Positive: RRR. Negative: Murmur Abdomen Description: Positive: Nontender Musculoskeletal: Positive: Strength/ROM Intact Neurological: Positive: Sensory/Motor Intact, Alert, Oriented to Person Place, Time, CN Intact II-III, Ataxic Gait - goes toward the left with ambulation, Speech Normal Psychiatric: Positive: Normal Diagnostics - Vital Signs Vital Signs Temp Pulse Resp BP Pulse Ox 08/04/18 16:45 99.0 F 87 16 120/90 98 - Laboratory Lab Statement: Any lab studies that have been ordered have been reviewed, and results considered in the medical decision making process. Headache Course/Dx - Course Course Of Treatment: 48 yr old with headache frontal in nature and off balance walking. - Diagnoses Provider Diagnoses: Headache, Ataxia Discharge - Sign-Out/Discharge Documenting (check all that apply): Patient Departure All imaging exams completed and their final reports reviewed: No Studies - Discharge Plan Condition: Fair Disposition: AGAINST MEDICAL ADVICE Referrals: Willi Chi MD [Primary Care Provider] - - Billing Disposition and Condition Condition: FAIR Disposition: Against Medical Advice
== END 2018-08-04 17:05 | disposition left against medical advice (07) ==
LOC: UCCORT 16:35
DX: R51 Headache (principal); R27.0 Ataxia, unspecified
CPT/HCPCS: 99212; G0463

== ENCOUNTER 2021-10-13 22:50 | Inpatient (IN) ==
[2021-10-14] MEDS ORDERED: Al Hydrox/Mg Hydrox/Simet LIQ 30 ML UDC PO PRN (04:30)
[2021-10-14 08:26] VITALS: BP 112/79
[2021-10-14] MEDS ORDERED: Vitamin THERAPEUTIC TAB PO SCH (09:00)
[2021-10-14] MEDS ORDERED: Nicotine GUM 4MG FRUIT FLAVOR PO PRN (09:57)
[2021-10-14 10:17] LABS: ABS Eosinophils 0.2 10^3/ul (0-0.6); ABS Lymphocytes 1.2 10^3/ul (1.0-4.8); ABS Monocytes 0.5 10^3/ul (0-0.8); Eosinophil % 4.4 %; Hematocrit 42 % (42-52); Lymphocyte % 23.9 %; Mean Corpuscular HGB Conc 33 g/dL (31-36); Mean Corpuscular Hemoglobin 30 pg (27-31); Mean Corpuscular Volume 90 fL (80-94); Mean Platelet Volume 6.5 fL (7.4-10.4); Nucleated Red Blood Cells % 0.1; Platelet Count 219 10^3/uL (150-450); Red Cell Distribution Width 13 % (10-15); White Blood Count 4.9 10^3/uL (3.5-10.8)
[2021-10-14 11:04] LABS: Albumin 4.4 g/dL (3.2-5.2); Albumin/Globulin Ratio 1.6 (1-3); Calcium 9.5 mg/dL (8.6-10.3); Globulin 2.8 g/dL (2-4); Potassium 4.4 mmol/L (3.5-5.0); Total Bilirubin 0.8 mg/dL (0.2-1.0); Total Protein 7.2 g/dL (6.4-8.9); eGFR CKD-EPI 102.5 (>60)
== END 2021-10-14 16:00 | disposition home or self-care (01) | DRG 882 ==
LOC: ED 22:50 → BSU 10-14 04:26
PROVIDERS: ADMIT Psychiatry & Neurology Psychiatry; ATTEND Psychiatry & Neurology Psychiatry